=== PATIENT | female | born 1955 | race Two or more races ===

== ENCOUNTER 2018-06-16 15:38 | Emergency (ER) | payer OTHER ==
[~2018-06-16] VITALS: Ht 154.9 cm; Wt 68.0 kg
[2018-06-16] MEDS ORDERED: HYDROcodone-ACET 10/325MG TAB PO ONE (18:15)
[2018-06-16] MEDS ORDERED: cloNIDine HCL 0.1 MG TAB PO ONE (18:15)
[2018-06-16 18:58] VITALS: BP 159/84
== END 2018-06-16 18:59 | disposition home or self-care (01) ==
LOC: ER 15:38
DX: I16.0 Hypertensive urgency (principal); E11.9 Type 2 diabetes mellitus without complications; I10 Essential (primary) hypertension; E78.5 Hyperlipidemia, unspecified; Z90.710 Acquired absence of both cervix and uterus
CPT/HCPCS: 70450